=== PATIENT | male | born 1970 | race Caucasian/White ===

== ENCOUNTER 2022-07-14 15:39 | Emergency (ER) | payer OTHER, SELFPAY ==
[2022-07-14 15:41] VITALS: BP 142/92; PULSE 72; RESP 15; TEMP 36.6; O2SAT 98
--- NOTE | 2022-07-14 16:00 | ED.EYEPROB ---
HPI - Eye Problem General Chief complaint: Eye Problems Stated complaint: brake fluid in eye Time Seen by Provider: 07/14/22 15:47 Source: patient Mode of arrival: ambulatory Limitations: no limitations History of Present Illness HPI Narrative: This is a 51-year-old male presents the ED with chief complaint of right eye injury. Patient was working on a car this afternoon and had brake fluid spray into his right eye. Reports immediate irritation and flushed the eye for 15 minutes with water. Denies blurry vision or significant visual change. States there is some irritation but this is largely resolved. Related Data Allergies Allergy/AdvReac Type Severity Reaction Status Date / Time No Known Allergies Allergy Verified 07/14/22 15:50 Review of Systems Review of Systems: CONSTITUTIONAL: Denies fever, chills, or sweats. EYES: Endorses right eye irritation. Denies visual changes or discharge. Denies diplopia. MUSCULOSKELETAL: Denies back pain, joint pain, or myalgia. NEUROLOGIC: Denies headache, numbness, dizziness, or weakness. PSYCHIATRIC: Denies anxiety or depression. Exam Narrative: GENERAL: Well-appearing, well-nourished, and in no acute distress. HEAD: Normocephalic, atraumatic. EYES: PERRLA and EOMI. mild conjunctival injection. No pain with EOMs. EXTREMITIES: Normal range of motion. No edema. SKIN: Warm, dry, no rash. NEURO: Alert and oriented x3. No focal deficits. PSYCH: Normal mood and affect. Course Course Emergency Course: RN reports visual acuity is 20/15 in both eyes. Vital Signs Vital signs: Vital Signs Temperature 97.9 F 07/14/22 15:41 Pulse Rate 72 07/14/22 15:41 Respiratory Rate 15 07/14/22 15:41 Blood Pressure 142/92 H 07/14/22 15:41 Pulse Oximetry 98 07/14/22 15:41 Temperature 97.9 F 07/14/22 15:41 Pulse Rate 72 07/14/22 15:41 Respiratory Rate 15 07/14/22 15:41 Blood Pressure 142/92 H 07/14/22 15:41 Pulse Oximetry 98 07/14/22 15:41 MDM - Eye Problem MDM Narrative Medical decision making narrative: This is a 51-year-old male presents to the ED with chief complaint of right eye irritation after getting brake fluid in his eye while working on a car. He flushed his eye for over 15 minutes at home. Vitals are stable. Right eye irrigated with Ivan lens. Erythromycin ointment placed here in the department. Symptoms consistent with irritant conjunctivitis. Prescription for erythromycin given as well. Visual acuity 20/15 in both eyes. He is stable for discharge at this point. Return precautions given, supportive measures discussed. Discussed case with Dr. Fleming who agrees with plan for discharge. Discharge Plan Discharge Clinical Impression: Acute conjunctivitis, right eye Patient Disposition: Home, Self-Care Condition: Stable Instructions: Antibiotic Form Additional Instructions: Please continue to monitor the eye at home. If you have any changes in vision or increased pain you have to return to the ER. Otherwise follow-up with your primary care doctor on this Use the erythromycin once daily. Prescriptions: New erythromycin 5 mg/gram (0.5 %) ointment 1 applic EACH EYE DAILY Qty: 3.5 0RF Follow-up/Referrals: PHYSICIAN,[employer] [Non-Staff] - Time of Disposition: 16:20
[2022-07-14] MEDS: ERYTHROMYCIN OPHTH OINTMENT 1 GM TUBE 1 APPLIC RIGHT EYE (16:16)
== END 2022-07-14 17:41 | disposition home or self-care (01) ==
PROVIDERS: Emergency Provider Physician Assistant; PCP Physician Assistant
DX: H10.9 Unspecified conjunctivitis (principal)
CPT/HCPCS: 99283; A9270; J7050